=== PATIENT | female | born 1965 | race Caucasian/White ===

== ENCOUNTER 2016-06-09 20:03 | Emergency (ER) | payer SELFPAY ==
[2016-06-09] MEDS ORDERED: ETOMIDATE INJ/PF 20 MG/10 ML SDV IV ONE (20:12)
[2016-06-09] MEDS ORDERED: NALOXONE HCL INJ 2 MG/2 ML DISP.SYRIN ONE (20:12)
--- NOTE | 2016-06-09 20:23 | ER Document Report ---
ED Substance Abuse / Acc. OD - General Mode of Arrival: Medic Information source: Emergency Med Personnel TRAVEL OUTSIDE OF THE [place] IN LAST 30 DAYS: No - HPI Patient complains to provider of: Drug abuse Associated Symptoms: Other - see above <PORTIA HOPKINS - Last Filed: 06/09/16 21:52> <DEACON GONZALEZ - Last Filed: 06/09/16 23:39> - General Chief Complaint: Unresponsive Stated Complaint: UNRESPONSIVE Notes: Patient is a 50 year old female who presents to the emergency department via EMS after being found unresponsive by family. Per EMS patient was given 2 Narcan en route. Patient is unresponsive on arrival. (PORTIA HOPKINS) - Related Data Allergies/Adverse Reactions: No Known Allergies Allergy (Verified 06/09/16 21:44) Past Medical History - General Information source: [facility] Records Cannot obtain history due to: Intubated - Social History Smoking Status: Unknown if Ever Smoked Family History: Reviewed & Not Pertinent - Past Medical History Cardiac Medical History: Reports: Hx DVT Pulmonary Medical History: Reports: Hx COPD Endocrine Medical History: Reports: Hx Diabetes Mellitus Type 2 Renal/ Medical History: Reports: Hx Kidney Stones Musculoskeltal Medical History: Reports Hx Arthritis - DDD Past Surgical History: Reports: Hx Cholecystectomy, Hx Hysterectomy, Hx Tubal Ligation - Immunizations Hx Diphtheria, Pertussis, Tetanus Vaccination: No <PORTIA HOPKINS - Last Filed: 06/09/16 21:52> Review of Systems - Review of Systems -: Yes ROS unobtainable due to patient's medical condition - unresponsive <PORTIA HOPKINS - Last Filed: 06/09/16 21:52> Physical Exam - Vital signs Interpretation: Hypotensive. No: Febrile - General General appearance: Other - unresponsive In distress: Severe - HEENT Head: Normocephalic, Atraumatic Pupils: PERRL Mucous membranes: Dry - Respiratory Respiratory status: Agonal respirations Breath sounds: Normal - clear - Extremities General upper extremity: Normal inspection General lower extremity: Normal inspection <PORTIA HOPKINS - Last Filed: 06/09/16 21:52> - Abdominal Bowel sounds: Normal - Skin Skin Temperature: Cool Skin Moisture: Dry <DEACON GONZALEZ - Last Filed: 06/09/16 23:39> - Vital signs Vitals: Resp Pulse Ox 20 100 06/09/16 20:05 06/09/16 20:05 Course - Laboratory Result Diagrams: 06/09/16 20:05 06/09/16 20:05 - Consults Poison Control Time consulted: 21:11 - Poison control will return call [place] Time consulted: 21:40 - Does not have any ICU beds available for transfer [facility] Time consulted: 21:43 - Does not have any ICU beds available for transfer [facility] Time consulted: 21:45 - Does have an ICU bed available <PORTIA HOPKINS - Last Filed: 06/09/16 21:52> - Laboratory Result Diagrams: 06/09/16 20:05 06/09/16 20:05 - Diagnostic Test Radiology reviewed: Image reviewed, Reports reviewed - EKG Interpretation by Me EKG shows normal: Sinus rhythm Rate: Tachycardia Rhythm: Other - Prolonged QTC <DEACON GONZALEZ - Last Filed: 06/09/16 23:39> - Re-evaluation Re-evalutation: 06/09/16 23:32 Patient is a 50-year-old female who presents unresponsive. There is no family here to provide any history. Patient has a history in our records of hepatitis C and kidney stones. Patient is unable to provide any history. Patient with initial core temperature of 95, hypotensive, unresponsive, respirations of 18. Patient was intubated for airway protection and taken to CT. No acute findings on imaging of head, chest, abdomen or pelvis. Patient was started on normal saline for hypotension and a bear hugger for hypothermia. Patient was found to have a prolonged QTc interval on EKG. Poison control was contacted regarding patient's medications and abnormal EKG. Patient was also acidotic. Recommended to give bicarbonate and repeat EKG. Patient is also recommended to have lidocaine in code and to avoid amiodarone. It is recommended that the patient continued to be hypotensive, she received norepinephrine. Patient received 3 L of fluid and continued to have pressure of 60s over 40s, so norepinephrine was initiated. Patient was discussed with Dr. Apple at [facility], who will accept the patient for transfer, due to lack of intensive this and potential need for hemodialysis due to acidosis. At this time, no infectious sort is identified. Troponin is negative. Working diagnosis is overdose of Seroquel, Effexor, and metformin potentially. Patient is in stable condition at the time of air transport to [facility]. Again, there is been no family or friends present to provide any further history. Patient has seized twice and has been given Ativan, as recommended by poison control. She has not been given any sedation or paralytic and continues to remain unresponsive. (DEACON GONZALEZ) - Vital Signs Vital signs: Temp Pulse Resp BP Pulse Ox 96.6 F L 9 L 97/49 L 100 06/09/16 22:56 06/09/16 23:01 06/09/16 23:01 06/09/16 23:01 - Laboratory Laboratory results interpreted by me: 06/09/16 06/09/16 06/09/16 20:05 20:05 20:05 RDW 14.7 H ABG pH ABG pO2 ABG O2 Saturation VBG pH VBG HCO3 Carbon Dioxide 17 L Glucose 214 H POC Glucose Lactic Acid Calcium 10.3 H AST 173 H ALT 144 H Serum HCG, Qual POSITIVE H Salicylates < 1.0 L Acetaminophen < 10 L 06/09/16 06/09/16 06/09/16 20:52 21:00 21:00 RDW ABG pH ABG pO2 ABG O2 Saturation VBG pH 7.13 L* VBG HCO3 15.7 L Carbon Dioxide Glucose POC Glucose 272 H Lactic Acid 8.7 H Calcium AST ALT Serum HCG, Qual Salicylates Acetaminophen 06/09/16 22:44 RDW ABG pH 7.34 L ABG pO2 140.4 H ABG O2 Saturation 98.7 H VBG pH VBG HCO3 Carbon Dioxide Glucose POC Glucose Lactic Acid Calcium AST ALT Serum HCG, Qual Salicylates Acetaminophen - Consults Poison Control Reason for consultation: 06/09/16 21:21 Discussed course of action for patient's possible overdose (PORTIA HOPKINS) [facility] Reason for consultation: 06/09/16 21:52 Will call back when they have an ICU bed available (PORTIA HOPKINS) Procedures - Intubation Orotracheal Airway evaluation: Normal anatomy Mallampati Classification: Class 2 Intubation method: Orotracheal Blade type: Cole Blade size: 4 Equipment used: Glidescope ETT size: 8.0 ETT secured at: Teeth Breath Sounds after Intubation: Equal End tidal CO2 confirmed: Yes Ventilator settings: CMV Post Intubation Xray: Yes Intubation Complications: No complications <DEACON GONZALEZ - Last Filed: 06/09/16 23:39> Critical Care Note - Critical Care Note Total time excluding time spent on procedures (mins): 120 - evaluation and management of unresponsive patient, multiple re-evaluations, workup of altered mental status, consultation with poison control, transfer to tertiary care center, multiple re-evaluations and interventions <DEACON GONZALEZ - Last Filed: 06/09/16 23:39> Discharge <PORTIA HOPKINS - Last Filed: 06/09/16 21:52> <DEACON GONZALEZ - Last Filed: 06/09/16 23:39> - Discharge Clinical Impression: Unresponsive state, Respiratory distress Hypotension Qualifiers: Hypotension type: unspecified hypotension type Qualified Code(s): I95.9 - Hypotension, unspecified Overdose Qualifiers: Encounter type: initial encounter Injury intent: undetermined intent Qualified Code(s): T50.904A - Poisoning by unspecified drugs, medicaments and biological substances, undetermined, initial encounter Hypothermia Qualifiers: Encounter type: initial encounter Qualified Code(s): T68.XXXA - Hypothermia, initial encounter Condition: Stable Disposition: [facility] Scribe Attestation: 06/09/16 23:39 I personally performed the services described in the documentation, reviewed and edited the documentation which was dictated to the scribe in my presence, and it accurately records my words and actions. (DEACON GONZALEZ) Scribe Documentation - Scribe Written by Kelli:: kelli Jefferson, 06/09/162022 acting as scribe for :: Joanne <PORTIA HOPKINS - Last Filed: 06/09/16 21:52>
[2016-06-09 20:31] LABS: ABSOLUTE BASOPHILS # (AUTO) 0.1 10^3/uL (0.0-0.2); ABSOLUTE EOSINOPHILS # (AUTO) 0.1 10^3/uL (0.0-0.6); ABSOLUTE LYMPHOCYTES (AUTO) 3.4 10^3/uL (0.5-4.7); ABSOLUTE MONOCYTES (AUTO) 0.3 10^3/uL (0.1-1.4); ABSOLUTE NEUT (AUTO) 4.8 10^3/uL (1.7-8.2); BASOPHILS % (AUTO) 0.6 % (0-2); EOSINOPHILS % (AUTO) 0.9 % (0-6); HEMATOCRIT 39.5 % (36.0-47.0); HEMOGLOBIN 13.5 g/dL (12.0-15.5); LYMPHOCYTES % (AUTO) 39.2 % (13-45); MEAN CORPUSCULAR HEMOGLOBIN 30.5 pg (27.0-33.4); MEAN CORPUSCULAR VOLUME 90 fl (80-97); MONOCYTES % (AUTO) 3.9 % (3-13); RED BLOOD COUNT 4.42 10^6/uL (3.72-5.28); RED CELL DISTRIBUTION WIDTH 14.7 % (11.5-14.0); SEGMENTED NEUTROPHILS % (AUTO) 55.4 % (42-78); WHITE BLOOD COUNT 8.6 10^3/uL (4.0-10.5)
[2016-06-09] MEDS ORDERED: LORAZEPAM INJ 2 MG/1 ML VIAL ONE (20:49)
[2016-06-09] MEDS ORDERED: SODIUM BICARBONATE 4.2% INJ (2.4 MEQ/5 ML) VIAL INJ ONE ×4 (20:55→22:41)
[2016-06-09] MEDS ORDERED: SODIUM BICARBONATE 8.4% INJ 50 MEQ/50 ML DISP.SYRIN ONE ×4 (20:59→23:22)
[2016-06-09 21:04] LABS: ALANINE AMINOTRANSFERASE 144 U/L (9-52); ALBUMIN 4.4 g/dL (3.5-5.0); ALCOHOL 167 mg/dL (NONE DETECTED); ALKALINE PHOSPHATASE 101 U/L (38-126); ASPARTATE AMINO TRANSFERASE 173 U/L (14-36); BILIRUBIN,TOTAL 0.9 mg/dL (0.2-1.3); BLOOD UREA NITROGEN 12 mg/dL (7-20); CALCIUM 10.3 mg/dL (8.4-10.2); CHLORIDE 106 mmol/L (98-107); CREATININE RESULT 0.78 mg/dL (0.52-1.25); GLUCOSE 214 mg/dL (75-110)
[2016-06-09] MEDS ORDERED: NORMAL SALINE 1000 ML 1,000 ML IV ONE ×2 (21:04)
[2016-06-09] MEDS ORDERED: LORAZEPAM INJ 2 MG/1 ML VIAL IV ONE ×2 (21:04→22:41)
[2016-06-09 21:12] LABS: VENOUS BLOOD BASE EXCESS -13.3 mmol/L; VENOUS BLOOD HCO3 15.7 mmol/L (20-32); VENOUS BLOOD PCO2 48.3 mmHg (35-63)
[2016-06-09 21:13] LABS: ANION GAP 19 (5-19); CARBON DIOXIDE 17 mmol/L (22-30); POTASSIUM 4.5 mmol/L (3.6-5.0); SODIUM 142.2 mmol/L (137-145)
[2016-06-09] MEDS ORDERED: DEXTROSE 5%-WATER 250 ML with NOREPINEPHRINE BITARTRATE 4 MG IV PRN ×2 (21:15)
[2016-06-09 21:17] LABS: CREATINE KINASE MB 1.19 ng/mL (<4.55)
[2016-06-09 21:19] LABS: VENOUS BLOOD PH 7.13 (7.30-7.42)
[2016-06-09 21:23] LABS: APPEARANCE,URINE CLEAR; BILIRUBIN,URINE NEGATIVE (NEGATIVE); GLUCOSE, URINE NEGATIVE (NEGATIVE); KETONES,URINE NEGATIVE (NEGATIVE); LEUKOCYTE ESTERASE,URINE NEGATIVE (NEGATIVE); NITRITE,URINE NEGATIVE (NEGATIVE); PROTEIN,URINE NEGATIVE (NEGATIVE); URINE SPECIFIC GRAVITY 1.005; UROBILINOGEN,URINE NEGATIVE mg/dL (<2.0)
[2016-06-09 21:24] LABS: TROPONIN I < 0.012 ng/mL
[2016-06-09 21:42] LABS: URINE BARBITURATES SCREEN NEGATIVE; URINE METHADONE SCREEN NEGATIVE; URINE OPIATES LOW NEGATIVE; URINE PHENCYCLIDINE SCREEN NEGATIVE
[2016-06-09] MEDS ORDERED: NOREPINEPHRINE BITARTRATE INJ/PF 4 MG/4 ML SDV IV ONE (21:51)
[2016-06-09 22:55] LABS: ARTERIAL BLOOD BASE EXCESS -4.1 mmol/L; ARTERIAL BLOOD O2 SATURATION 98.7 % (94-98)
[2016-06-09 23:03] VITALS: BP 97/49
--- NOTE | 2016-06-10 09:39 | EKG REPORT ---
SEVERITY:- ABNORMAL ECG - SINUS RHYTHM RBBB AND LPFB : Confirmed by: Jose Erwin MD 10-Jun-2016 09:38:45
--- NOTE | 2016-06-10 09:42 | EKG REPORT ---
SEVERITY:- ABNORMAL ECG - SINUS RHYTHM RIGHT BUNDLE BRANCH BLOCK : Confirmed by: Jose Erwin MD 10-Jun-2016 09:41:51
== END 2016-06-09 23:25 | disposition short-term general hospital (02) ==
LOC: ER 20:03
PROC: 0BH17EZ Insertion of Endotracheal Airway into Trachea, Via Natural or Artificial Opening (ICD-10-PCS; principal; 2016-06-09)
DX: R06.00 Dyspnea, unspecified (principal); T50.904A Poisoning by unspecified drugs, medicaments and biological substances, undetermined, initial encounter; E87.2 Acidosis; I95.9 Hypotension, unspecified; T68.XXXA Hypothermia, initial encounter; X58.XXXA Exposure to other specified factors, initial encounter; J44.9 Chronic obstructive pulmonary disease, unspecified; E11.9 Type 2 diabetes mellitus without complications; Z86.718 Personal history of other venous thrombosis and embolism; Z87.442 Personal history of urinary calculi; Z90.710 Acquired absence of both cervix and uterus; Z90.49 Acquired absence of other specified parts of digestive tract
CPT/HCPCS: 93005; 96376; 99291; 99292; 96361; 51702; 96374; 86900; 86901; 36415; 82553; 86850; 82962; 80307 ×4; 82803 ×2; 82550; 84702; 83735; 84443; 84703; 85025; 80053; 81001; 84484; 83605; 71010; 70450; 71250; 74176; 93010; 31500; J3490 ×2; J2060; J7060; J7030; 94002

== ENCOUNTER 2016-08-03 12:32 | Emergency (ER) | payer SELFPAY ==
--- NOTE | 2016-08-03 13:09 | ER Document Report ---
ED Extremity Problem, Lower - General Chief Complaint: Leg Pain Stated Complaint: RIGHT LEG AND FOOT PAIN Mode of Arrival: Ambulatory Information source: Patient TRAVEL OUTSIDE OF THE [place] IN LAST 30 DAYS: No - HPI Notes: Patient arrives with complaints of right leg burning. She states that the last several weeks she's had tingling in her right foot. She saw her primary care physician was concerned she may have some lumbar radiculopathy as the source of this burning in her foot, they had ordered x-rays which showed degenerative disc disease. The patient tells me that her family physician will be ordering an MRI of her lumbar spine. States her last few days she's been having a burning sensation to the lateral aspect of her right thigh. She denies any injuries. She denies any weakness. She does complain of tingling in this leg. She does have a history of diabetes. She also has a history of DVT after having a child. She was recently hospitalized for approximately 5 days after being unresponsive and was intubated in the ICU. She denies any chest pain or shortness of breath. She has a history of COPD and states that an O2 saturation of 91% is completely normal for her, she sleep with O2 on because it gets lower at night. At this time she denies any chest pain or shortness of breath. She denies any redness. No injury. No bowel or bladder dysfunction. She denies any abdominal pain. No nausea vomiting or diarrhea. She denies any dysuria or hematuria. No rash. No fever. She is not currently on blood thinners and denies any IV drug use. Patient states that she also stubbed her left fifth toe this morning and it is bruised. She declines wanting this evaluated and denies any x-rays at this time. - Related Data Allergies/Adverse Reactions: No Known Allergies Allergy (Verified 08/03/16 12:37) Past Medical History - Social History Smoking Status: Unknown if Ever Smoked Family History: Reviewed & Not Pertinent Patient has suicidal ideation: No Patient has homicidal ideation: No - Past Medical History Cardiac Medical History: Reports: Hx DVT Pulmonary Medical History: Reports: Hx COPD Endocrine Medical History: Reports: Hx Diabetes Mellitus Type 2 Renal/ Medical History: Reports: Hx Kidney Stones. Denies: Hx Peritoneal Dialysis Musculoskeltal Medical History: Reports Hx Arthritis - DDD Past Surgical History: Reports: Hx Cholecystectomy, Hx Hysterectomy, Hx Tubal Ligation - Immunizations Hx Diphtheria, Pertussis, Tetanus Vaccination: No Review of Systems - Review of Systems -: Yes All other systems reviewed and negative Physical Exam - Vital signs Vitals: Temp Pulse Resp BP Pulse Ox 98 F 77 16 155/77 H 91 L 08/03/16 12:37 08/03/16 12:37 08/03/16 12:37 08/03/16 12:37 08/03/16 12:37 - Notes Notes: GENERAL: alert, cooperative, nontoxic, no distress. HEAD: normocephalic, atraumatic EYES: conjunctiva pink without discharge, no external redness or swelling. EARS: no external swelling, no external redness NOSE: atraumatic, no external swelling MOUTH/THROAT: mucous membranes moist and pink, posterior pharynx without erythema, swelling, exudate. No trismus or drooling. NECK: soft, supple, full range of motion, no meningismus. CHEST: no distress, lungs clear and equal throughout. No wheezing, rales, rhonchi. CARDIAC: regular rate and rhythm, no murmur, normal capillary refill, normal pulses. No peripheral edema noted. ABDOMEN: soft, nontender, no pusatile mass. BACK: Full range of motion, no tenderness. EXTREMITIES: full range of motion of all extremities. No redness, no swelling. She did have ecchymosis to the left fifth toe. No deformity. No tenderness to palpation of the left fifth metatarsal. NEURO: alert and oriented 3, no focal deficits, full range of motion of all extremities. 5 out of 5 flexion and extension of the lower extremities bilaterally. Patellar and Achilles deep tendon reflexes are +2 bilaterally. Normal sensation with no saddle anesthesia. PYSCH: appropriate mood, affect. Patient is cooperative. SKIN: pink, warm, dry, no rash. Course - Re-evaluation Re-evalutation: 08/03/16 14:29 Patient is nontoxic. Stable vitals. She is noted to be hypoxic at 91%, she states that this is her normal as she has COPD. She denies any chest pain or shortness of breath at this time. She has complaints of burning to her right thigh and right foot. She does have diabetes. This certainly could be related to neuropathy although radicular source of pain is also a possibility. She is in the process of seeing her family doctor who is going to order an MRI of her lumbar spine. She has no sign or risk of cauda equina or epidural abscess or bleed at this time. She has no bowel or bladder dysfunction, she does not require emergent MRI at this time. The patient does have a history of DVT, she was recently hospitalized for approximately 5 days in the ICU, therefore I have ordered a venous duplex of the right lower extremity to rule out DVT. The patient does not want to wait for that test and would like to leave at this time. The patient will be leaving AGAINST MEDICAL ADVICE since we are unable to complete her entire workup. The patient and/or family have decided to leave against medical advice. The patient and/or family are of sound mind to make this decision. The risks of leaving were discussed with the patient and/or family who verbalized an understanding of these risks. The possibility of worsening condition, chance of increased morbidity, disability, mortality, and even were discussed. The patient and/or family still choose to leave against medical advice. Strict return instructions were given. They were also instructed to return to the emergency department for any concerns not outlined in the return instructions. The patient is noted to have elevated blood pressure during today's emergency department visit. The patient was informed of this finding. The patient was instructed that this may be related to pre-hypertension and requires further evaluation with a primary care provider. The patient has no hypertensive symptoms at this time. The patient's emergency department workup and current diagnosis were explained to the patient and or family. Follow-up instructions were provided. Medications if prescribed were discussed. Instructions for when to return to the emergency department including specific worrisome symptoms were discussed with the patient and/or family. - Vital Signs Vital signs: Temp Pulse Resp BP Pulse Ox 98 F 77 16 155/77 H 91 L 08/03/16 12:37 08/03/16 12:37 08/03/16 12:37 08/03/16 12:37 08/03/16 12:37 Discharge - Discharge Clinical Impression: Radiculopathy Qualifiers: Spinal region: lumbar Qualified Code(s): M54.16 - Radiculopathy, lumbar region Condition: Stable Disposition: HOME, SELF-CARE Instructions: Radiculopathy ([facility]) Additional Instructions: Take medications as prescribed. Follow-up with her family doctor at the next available appointment. Follow-up sooner for increased pain, fever, redness, swelling, difficulty controlling her bowels or bladder, or any further concerns. Your blood pressure was elevated during today's visit. Have this rechecked with your doctor. Prescriptions: Diclofenac Sodium [Voltaren] 75 mg PO BID #20 tablet.dr Forms: Elevated Blood Pressure
[2016-08-03 14:43] VITALS: BP 144/72
== END 2016-08-03 14:42 | disposition left against medical advice (07) ==
LOC: ER 12:32
DX: M54.16 Radiculopathy, lumbar region (principal); R20.8 Other disturbances of skin sensation; E11.9 Type 2 diabetes mellitus without complications; J44.9 Chronic obstructive pulmonary disease, unspecified; R09.02 Hypoxemia; R03.0 Elevated blood-pressure reading, without diagnosis of hypertension; Z99.81 Dependence on supplemental oxygen; Z86.718 Personal history of other venous thrombosis and embolism; Z53.29 Procedure and treatment not carried out because of patient's decision for other reasons
CPT/HCPCS: 99283

== ENCOUNTER → 2019-04-28 | Outpatient (CLI) | payer MEDICAID ==
--- NOTE | 2019-04-28 15:51 | RADIOLOGY REPORT (SQ) ---
EXAM DESCRIPTION: T SPINE AP/LAT COMPLETED DATE/TIME: 04/28/2019 10:02 am REASON FOR STUDY: PAIN IN THORACIC SPINE,UNSP FRACTURE OF UNSP THORACIC VERTEBRA, INIT FOR CL M54.6 PAIN IN THORACIC SPINE S22.009A UNSP FRACTURE OF UNSP THORACIC VERTEBRA, INIT FOR C COMPARISON: None. NUMBER OF VIEWS: Two views. TECHNIQUE: AP and lateral radiographic images acquired of the thoracic spine. LIMITATIONS: None. FINDINGS: MINERALIZATION: Normal. ALIGNMENT: Normal. No scoliosis. VERTEBRAE: No fracture or bone lesion. Maintained height, normal segmentation. DISCS: No significant loss of height or significant narrowing. No large osteophytes. HARDWARE: None in the spine. MEDIASTINUM AND SOFT TISSUES: Normal heart size and aortic contour. No soft tissue abnormality. VISUALIZED LUNG ANTONIO: Clear. OTHER: No other significant finding. IMPRESSION: NO SIGNIFICANT RADIOGRAPHIC FINDING IN THE THORACIC SPINE. TECHNICAL DOCUMENTATION: JOB ID: [id number] [employer]- All Rights Reserved Reading location - IP/workstation name: [email or web address]
== END ==
LOC: OD 09:39
PROVIDERS: ATTEND Physician Assistant
DX: S22.009A Unspecified fracture of unspecified thoracic vertebra, initial encounter for closed fracture (principal); X58.XXXA Exposure to other specified factors, initial encounter; M54.6 Pain in thoracic spine
CPT/HCPCS: 72070

== ENCOUNTER 2020-01-11 12:41 | Emergency (ER) | payer MEDICAID ==
[2020-01-11 13:24] VITALS: BP 114/51
--- NOTE | 2020-01-11 13:24 | ER Document Report ---
ED Medical Screen (RME) - General Chief Complaint: Cough Stated Complaint: COUGH/CONGESTION/BACK PAIN Time Seen by Provider: 01/11/20 13:22 Primary Care Provider: GLADYS GAMING PA-C [Primary Care Provider] - Follow up as needed Mode of Arrival: Wheelchair Information source: Patient Notes: 54-year-old female presented to ED for complaint of shortness of breath pain across her chest across the bra line across the back. She states she does have a history of COPD. She went to employee training specialist and they told her to come to the emergency room. She states she is not willing to wait her room to be available if she cannot get a room right now that she is going to go somewhere else. I did explain to patient that anywhere she goes she will have to wait on a Saturday morning afternoon. Patient states she does not have the patient states that she will wait for her return. I did explain to her that if she left AGAINST MEDICAL ADVICE that it could be caused deterioration in her condition delaying treatment and occurred her risk everything up to desk. Patient states she understood this but she was leaving anyway. She did sign AMA paper and she did not leave. TRAVEL OUTSIDE OF THE [place] IN LAST 30 DAYS: No - Related Data Allergies/Adverse Reactions: No Known Allergies Allergy (Verified 08/03/16 12:37) Past Medical History - Past Medical History Cardiac Medical History: Reports: Hx DVT, Hx Hypercholesterolemia, Hx Hypertension Pulmonary Medical History: Reports: Hx COPD Endocrine Medical History: Reports: Hx Diabetes Mellitus Type 2 Renal/ Medical History: Reports: Hx Kidney Stones. Denies: Hx Peritoneal Dialysis Musculoskeltal Medical History: Reports Hx Arthritis - DDD Past Surgical History: Reports: Hx Cholecystectomy, Hx Hysterectomy, Hx Tubal Ligation - Immunizations Hx Diphtheria, Pertussis, Tetanus Vaccination: No Physical Exam - Vital signs Vitals: Temp Pulse BP Pulse Ox 98.6 F 87 114/51 L 90 L 01/11/20 13:20 01/11/20 13:20 01/11/20 13:20 01/11/20 13:20 Course - Vital Signs Vital signs: Temp Pulse Resp BP Pulse Ox 98.6 F 87 114/51 L 90 L 01/11/20 13:20 01/11/20 13:20 01/11/20 13:20 01/11/20 13:20 Doctor's Discharge - Discharge Clinical Impression: Shortness of breath COPD (chronic obstructive pulmonary disease) Qualifiers: COPD type: chronic bronchitis Chronic bronchitis type: unspecified Qualified Code(s): J42 - Unspecified chronic bronchitis Disposition: AGAINST MEDICAL ADVICE Referrals: GLADYS GAMING PA-C [Primary Care Provider] - Follow up as needed
== END 2020-01-11 13:30 | disposition left against medical advice (07) ==
LOC: ER 12:41
DX: J44.9 Chronic obstructive pulmonary disease, unspecified (principal); R06.02 Shortness of breath; I10 Essential (primary) hypertension; E11.9 Type 2 diabetes mellitus without complications; Z86.718 Personal history of other venous thrombosis and embolism; Z53.29 Procedure and treatment not carried out because of patient's decision for other reasons
CPT/HCPCS: 99281

== ENCOUNTER 2020-02-23 11:08 | Day surgery (SDC) | payer MEDICAID ==
[2020-02-11 11:02] LABS: ABSOLUTE BASOPHILS # (AUTO) 0.1 10^3/uL (0.0-0.2); ABSOLUTE EOSINOPHILS # (AUTO) 1.5 10^3/uL (0.0-0.6); ABSOLUTE LYMPHOCYTES (AUTO) 2.5 10^3/uL (0.5-4.7); ABSOLUTE MONOCYTES (AUTO) 0.4 10^3/uL (0.1-1.4); BASOPHILS % (AUTO) 0.7 % (0-2); HEMATOCRIT 38.3 % (36.0-47.0); HEMOGLOBIN 13.3 g/dL (12.0-15.5); MEAN CORPUSCULAR HEMOGLOBIN 31.2 pg (27.0-33.4); MEAN CORPUSCULAR HGB CONC 34.8 g/dL (32.0-36.0); MEAN CORPUSCULAR VOLUME 90 fl (80-97); MONOCYTES % (AUTO) 3.5 % (3-13); PLATELET COUNT 255 10^3/uL (150-450); RED BLOOD COUNT 4.27 10^6/uL (3.72-5.28); RED CELL DISTRIBUTION WIDTH 14.2 % (11.5-14.0); SEGMENTED NEUTROPHILS % (AUTO) 60.8 % (42-78); TOTAL CELLS COUNTED % (AUTO) 100 %; WHITE BLOOD COUNT 11.5 10^3/uL (4.0-10.5)
[2020-02-11 11:32] LABS: ANION GAP 13 (5-19); BLOOD UREA NITROGEN 8 mg/dL (7-20); CALCIUM 9.8 mg/dL (8.4-10.2); CARBON DIOXIDE 25 mmol/L (22-30); CHLORIDE 94 mmol/L (98-107); GLUCOSE 90 mg/dL (75-110); POTASSIUM 4.6 mmol/L (3.6-5.0)
--- NOTE | 2020-02-11 12:21 | RADIOLOGY REPORT (SQ) ---
EXAM DESCRIPTION: CHEST PA/LATERAL IMAGES COMPLETED DATE/TIME: 02/11/2020 9:53 am REASON FOR STUDY: PRE-OP COMPARISON: 05/09/2015 EXAM PARAMETERS: NUMBER OF VIEWS: two views TECHNIQUE: Digital Frontal and Lateral radiographic views of the chest acquired. RADIATION DOSE: NA LIMITATIONS: none FINDINGS: LUNGS AND PLEURA: No opacities, masses or pneumothorax. No pleural effusion. MEDIASTINUM AND HILAR STRUCTURES: No masses or contour abnormalities. HEART AND VASCULAR STRUCTURES: Heart normal size. No evidence for failure. BONES: No acute findings. HARDWARE: None in the chest. OTHER: No other significant finding. IMPRESSION: NO SIGNIFICANT RADIOGRAPHIC FINDING IN THE CHEST. TECHNICAL DOCUMENTATION: JOB ID: [id number] 2010 [employer]- All Rights Reserved Reading location - IP/workstation name: [email or web address]
[2020-02-18 10:36] LABS: HEMATOCRIT 35.6 % (36.0-47.0); HEMOGLOBIN 12.3 g/dL (12.0-15.5); MEAN CORPUSCULAR HEMOGLOBIN 31.4 pg (27.0-33.4); MEAN CORPUSCULAR HGB CONC 34.6 g/dL (32.0-36.0); MEAN CORPUSCULAR VOLUME 91 fl (80-97); PLATELET COUNT 242 10^3/uL (150-450); RED BLOOD COUNT 3.92 10^6/uL (3.72-5.28); RED CELL DISTRIBUTION WIDTH 14.4 % (11.5-14.0)
[2020-02-18 10:43] LABS: APPEARANCE,URINE CLOUDY; BILIRUBIN,URINE SMALL (NEGATIVE); GLUCOSE, URINE NEGATIVE (NEGATIVE); KETONES,URINE NEGATIVE (NEGATIVE); LEUKOCYTE ESTERASE,URINE TRACE (NEGATIVE); NITRITE,URINE NEGATIVE (NEGATIVE); PROTEIN,URINE 30 mg/dL (NEGATIVE); URINE SPECIFIC GRAVITY 1.024
[2020-02-18 10:44] LABS: COLOR,URINE YELLOW
[2020-02-18 10:46] LABS: INTERNATIONAL RATION (INR) 0.79; PROTHROMBIN TIME 11.2 SEC (11.4-15.4)
[2020-02-18 10:47] LABS: PARTIAL THROMBOPLASTIN TIME 27.4 SEC (23.5-35.8)
--- NOTE | 2020-02-19 00:32 | EKG REPORT ---
SEVERITY:- ABNORMAL ECG - SINUS RHYTHM NONSPECIFIC T ABNORMALITIES, DIFFUSE LEADS : Confirmed by: Sejal Zamora 19-Feb-2020 00:32:12
[~2020-02-23 11:08] MED LIST: CEFAZOLIN 1 GM/D5W RTU 1 GM/50 ML RTUPB IV PRN; LACTATED RINGERS 1000 ML IV PRN; NORMAL SALINE 1000 ML 1,000 ML IV PRN
[2020-02-23] MEDS ORDERED: ONDANSETRON HCL INJ/PF 4 MG/2 ML SDV ONE (12:21)
[2020-02-23] MEDS ORDERED: MIDAZOLAM 2 MG/2 ML INJ ONE (12:21)
[2020-02-23] MEDS ORDERED: FENTANYL CITRATE INJ/PF 100 MCG/2 ML AMPUL ONE ×2 (12:21→14:03)
[2020-02-23] MEDS ORDERED: PROPOFOL INJ 200 MG/20 ML VIAL IV ONE ×3 (12:22→15:20)
[2020-02-23] MEDS ORDERED: LIDOCAINE 1% INJ-PF (10 MG/ML) 30 ML SDV ONE ×2 (12:27→14:35)
[2020-02-23 12:33] LABS: INTERNATIONAL RATION (INR) 0.93; PROTHROMBIN TIME 12.7 SEC (11.4-15.4)
[2020-02-23 12:34] LABS: PARTIAL THROMBOPLASTIN TIME 27.5 SEC (23.5-35.8)
[2020-02-23] MEDS ORDERED: ALBUTEROL SULFATE 0.083% NEB 2.5 MG/3 ML AMPUL NEB ONE (12:58)
[2020-02-23] MEDS ORDERED: IPRATROPIUM/ALBUTEROL 0.5-2.5 MG/3 ML AMPUL NEB ONE (12:58)
[2020-02-23] MEDS ORDERED: CEFAZOLIN 1 GM/D5W RTU 1 GM/50 ML RTUPB IV ONE (13:12)
[2020-02-23] MEDS ORDERED: PROMETHAZINE HCL INJ 25 MG/1 ML VIAL IV PRN (13:33)
[2020-02-23] MEDS ORDERED: MORPHINE SULFATE 10 MG/ML INJ IV PRN (13:33)
[2020-02-23] MEDS ORDERED: DIPHENHYDRAMINE HCL 50 MG/ML VIAL IV PRN (13:33)
[2020-02-23] MEDS ORDERED: FENTANYL CITRATE INJ/PF 100 MCG/2 ML AMPUL IV PRN ×3 (13:33)
[2020-02-23] MEDS ORDERED: GLYCOPYRROLATE 1 MG/5 ML VIAL ONE (14:35)
[2020-02-23] MEDS ORDERED: MORPHINE SULFATE 10 MG/ML INJ ONE (15:24)
--- NOTE | 2020-02-23 15:24 | Operative Report ---
Operative Report DATE OF SURGERY: 02/23/20 PREOPERATIVE DIAGNOSIS: Vertebral compression fracture T6 and T7 POSTOPERATIVE DIAGNOSIS: Same OPERATION: Percutaneous balloon kyphoplasty at T6 and T7 SURGEON: MIRIAM CHONG ANESTHESIA: Moderate Sedation TISSUE REMOVED OR ALTERED: none COMPLICATIONS: none ESTIMATED BLOOD LOSS: minimal INTRAOPERATIVE FINDINGS: Excellent spread of methylmethacrylate cement throughout the vertebral bodies of T6 and T7 without extravasation PROCEDURE: DESCRIPTION OF PROCEDURE: The patient was taken to the preoperative suite, informed consent was obtained from the patient, and all appropriate preoperative documentation was completed. Intravenous access was obtained and the patient was moved to the operating room. A time out was performed with the patient, nurse and attending physician present in the operative suite. Prophylactic antibiotics were administered in the form of 1G IV Ancef preoperatively and less than one hour before incision. The patient was positioned prone and all pressure points were checked while the patient was awake. Monitored anesthesia care was subsequently induced by the anesthesia care provider. > The T6 and T7 Vertebral bodies were identified with fluoroscopic guidance. The skin overlying the target area was prepped with Chlorhexidine x 3 and sterilely draped in the usual fashion maintaining meticulous sterile technique. Local anesthesia was obtained with a total of 10 ml of preservative free 1% Lidocaine. A stab incision was made 1 cm lateral to the lateral border of the right T7 pedicle. A 10 gauge trocar was introduced safely through each pedicle just inside the target vertebral body. The stylet of the trocar was removed and a working cannula was left in place. A drill was then inserted through the working cannula at this level, advanced under lateral fluoroscopic imaging, to a point just posterior to the anterior vertebral body wall. The drill was removed and a balloon was inserted through the working cannula stopping posterior to the anterior vertebral body wall. The balloons were inflated with radiopaque contrast dye in .5 mL increments. Lateral fluoroscopic images were obtained to confirm balloon inflation did not breach the superior or inferior endplates. A/P fluoroscopic images were obtained periodically to confirm that the lateral juarez were not breached. Inflation of the balloons continued until the desired fracture reduction was achieved. Notably, after the inflation of the first balloon, it was noted that the balloon was slowly leaking contrast. As such, the balloon was removed, and another balloon placed. This balloon despite insertion to only 200 PSI also leaked contrast and was removed. Attention was then turned to the T6 vertebral body where the procedure was performed in identical fashion exception in a bipedicular approach. PMMA bone cement was prepared and filled in bone filler cannulas. The balloons were deflated and removed. The cement filled cannulas were inserted through the working cannula to the anterior portion of the vertebral body. The cement cannula plungers were used to push .2 mL increments of cement into the vertebral body. Lateral fluoroscopic images were obtained at .2 mL increments to verify that the cement did not extravasate. A/P fluoroscopic views were taken at incrementally to verify that the cement did not extravasate laterally. Safe cement fill continued until the anterior 2/3 of the vertebral body was filled. A total of 3.2 mL of cement was used at T6 and 3.4 mL of cement used at T7. The bone cement cannulas were removed. Lateral fluoroscopic imaging confirmed that no cement migrated posteriorly up the working cannula. The working cannulas were removed and pressure was applied to the incision sites until adequate hemostasis was assured. The incision sites were then copiously irrigated with bacitracin solution. Indermil was used to reapproximate the skin and each site was covered with a sterile adhesive bandage. Final sponge and needle counts were correct. OPERATING ROOM DISPOSITION: The patient was taken from the operating room to the recovery room in stable condition. FINAL DISPOSITION: The patient was discharged from the PACU after appropriate discharge criteria were met.
[2020-02-23] MEDS ORDERED: HYDROCODONE/ACETAMINOPHEN 10-325 MG TABLET ONE (16:04)
[2020-02-23] MEDS ORDERED: ONDANSETRON HCL INJ/PF 4 MG/2 ML SDV IV PRN (16:18)
[2020-02-23] MEDS ORDERED: HYDROCODONE/ACETAMINOPHEN 10-325 MG TABLET PO PRN (16:18)
[2020-02-23 18:28] VITALS: BP 128/74
--- NOTE | 2020-02-24 10:36 | RADIOLOGY REPORT (SQ) ---
EXAM DESCRIPTION: NO G FLUORO IMAGES COMPLETED DATE/TIME: 02/23/2020 3:41 pm REASON FOR STUDY: KYPHOPLASTY T-SPINE ASSISTED USING FLUORO COMPARISON: None. FLUOROSCOPY TIME: 7.9 minutes, 7.2 minutes 40 Images saved to PACS LIMITATIONS: None. PROCEDURE: Thoracic kyphoplasty assisted with fluoro FINDINGS: Images from fluoro document the procedures. IMPRESSION: Thoracic kyphoplasty assisted with fluoro. Refer to operative note for further informat ion. COMMENT: [id number]: Fluoroscopy time of the procedure is documented in the report. TECHNICAL DOCUMENTATION: JOB ID: [id number] 2010 [employer]- All Rights Reserved Reading location - IP/workstation name: [email or web address]
--- NOTE | 2020-02-24 11:23 | RADIOLOGY REPORT (SQ) ---
EXAM DESCRIPTION: T SPINE AP/LAT IMAGES COMPLETED DATE/TIME: 02/23/2020 3:42 pm REASON FOR STUDY: KYPHOPLASTY T-SPINE ASSISTED USING FLUORO S22.000A WEDGE COMPRESSION FRACTURE OF UNSP THORACIC VERTEBR COMPARISON: None. NUMBER OF VIEWS: Multiple images from fluoro TECHNIQUE: Multiple images were obtained from fluoro. LIMITATIONS: None. FINDINGS: Images from fluoro document the kyphoplasty procedures. IMPRESSION: Thoracic kyphoplasty. Refer to operative note for further information. TECHNICAL DOCUMENTATION: JOB ID: [id number] 2010 [employer]- All Rights Reserved Reading location - IP/workstation name: [email or web address]
== END 2020-02-23 17:35 | disposition home or self-care (01) ==
LOC: OROUT 11:08
PROVIDERS: ATTEND Pain Medicine Interventional Pain Medicine
DX: S22.050A Wedge compression fracture of T5-T6 vertebra, initial encounter for closed fracture (principal); S22.060A Wedge compression fracture of T7-T8 vertebra, initial encounter for closed fracture; X58.XXXA Exposure to other specified factors, initial encounter; J43.9 Emphysema, unspecified; E11.9 Type 2 diabetes mellitus without complications; I10 Essential (primary) hypertension; E78.00 Pure hypercholesterolemia, unspecified; F31.9 Bipolar disorder, unspecified; F17.210 Nicotine dependence, cigarettes, uncomplicated; Z20.828 Contact with and (suspected) exposure to other viral communicable diseases; Z79.899 Other long term (current) drug therapy; Z79.82 Long term (current) use of aspirin; Z79.891 Long term (current) use of opiate analgesic; B18.2 Chronic viral hepatitis C; G89.4 Chronic pain syndrome; M47.27 Other spondylosis with radiculopathy, lumbosacral region; M50.30 Other cervical disc degeneration, unspecified cervical region; M79.10 Myalgia, unspecified site; F12.90 Cannabis use, unspecified, uncomplicated; G47.33 Obstructive sleep apnea (adult) (pediatric)
CPT/HCPCS: 93005; 36415 ×3; 82962; 84132; 85025; 85027; 85610 ×2; 85730 ×2; 87635 ×2; 80048; 81001; 71046; 72070; 93010; 01936; 22513; 22515; C1713; Q9966; J2250; J0690; J3010; J3490 ×2; J2270; J2405; J2704; J7613; C9803 ×2; 1936